=== PATIENT | female | born 1940 | race Caucasian/White ===

== ENCOUNTER 2016-05-24 12:03 | Emergency (ER) | payer MEDICARE, OTHER ==
[2016-05-24 13:32] LABS: RED BLOOD COUNT 4.59 M/UL (4.00-5.10); WHITE BLOOD COUNT 6.7 K/UL (4.5-11.0)
[2016-05-24 13:50] LABS: BUN/CREATININE RATIO 17 (0-10)
== END 2016-05-24 13:50 | disposition home or self-care (01) ==
LOC: ER1 12:03
PROVIDERS: Emergency Medicine
DX: R42 Dizziness and giddiness (principal); Z79.01 Long term (current) use of anticoagulants; Z79.899 Other long term (current) drug therapy
CPT/HCPCS: 36415; 70450; 71010; 80053; 80162; 81001; 82550; 82553; 83874; 84484; 85025; 85610; 85730; 93005; 99284